=== PATIENT | male | born 1955 | race Two or more races ===

== ENCOUNTER 2017-04-15 13:01 | Emergency (ER) | payer MEDICAID, MEDICARE ==
[~2017-04-15] VITALS: Ht 182.9 cm; Wt 85.6 kg
[2017-04-15 13:03] VITALS: BP 146/87
[2017-04-15] MEDS ORDERED: SULFAMETH./TRIMETHOPRIM DS 800MG/160MG TABLET PO ONE (13:30)
[2017-04-15] MEDS ORDERED: CEFAZOLIN 1,000 MG IM ONE (13:30)
[2017-04-15] MEDS ORDERED: SULFAMETH./TRIMETHOPRIM DS 800MG/160MG TABLET ONE (14:46)
[2017-04-15] MEDS ORDERED: CEFAZOLIN 1,000 MG ONE ×2 (14:46→15:03)
== END 2017-04-15 15:22 | disposition home or self-care (01) ==
LOC: ED 15:18
DX: L03.115 Cellulitis of right lower limb (principal)
CPT/HCPCS: 36415; 85025